=== PATIENT | female | born 1955 | race Caucasian/White ===

== ENCOUNTER 2018-07-24 14:58 | Emergency (ER) | payer MEDICARE ==
[~2018-07-24] VITALS: Ht 177.8 cm; Wt 83.9 kg
[~2018-07-24 14:58] MED LIST: ALBU3IS INH; ASPI325 PO; AZIT250 PO; CARV3.125; CARV3.125 PO; CYAN1000 PO; Coumadin5 MG PO; Dazidox10 MG PO; FLUSAL2505 INH; FURO20 PO; GABA300 PO; GABA600 PO; IBUP600 PO; Lovenox100 MG/1 M SC; MULVITMIND PO; NEBI5 PO; OMEP40CA12 PO; OXYB5 PO; OXYC1TAB11 PO; OXYC30ER PO; POTCHL20ER PO; PRED10 PO; RANI150 PO; TIOT18 INH; TUDORZA PRESS400 MCG IH; Ventolin5 MG/1 ML INH
[2018-07-24] MEDS ORDERED: Percocet 5-3251 EACH PO (16:41)
[2018-07-24] MEDS ORDERED: Keflex500 MG PO (16:41)
[2018-07-24] MEDS ORDERED: Bactrim Ds Tab1 EACH PO (16:41)
== END 2018-07-24 17:12 | disposition home or self-care (01) ==
LOC: ER 14:58
DX: L03.115 Cellulitis of right lower limb (principal); Z88.5 Allergy status to narcotic agent; Z88.6 Allergy status to analgesic agent; Z79.899 Other long term (current) drug therapy; J44.9 Chronic obstructive pulmonary disease, unspecified; Z87.891 Personal history of nicotine dependence
CPT/HCPCS: 93971; 99284-25

== ENCOUNTER 2023-03-20 10:25 | Emergency (ER) | payer MEDICARE ==
[~2023-03-20] VITALS: Ht 177.8 cm; Wt 74.8 kg
[~2023-03-20 10:25] MED LIST changes: +Bactrim Ds Tab1 EACH PO; +Keflex500 MG PO; +Percocet 5-3251 EACH PO
[2023-03-20 11:02] LABS: BASOPHILS ABSOLUTE AUTO 0.02 K/mm3 (0.00-0.23); BASOPHILS PERCENT AUTO 0 % (0-2); EOSINOPHILS ABSOLUTE AUTO 0.12 K/mm3 (0.00-0.68); EOSINOPHILS PERCENT AUTO 2 % (0-6); Hematocrit 21.1 % (33.0-51.0); IMMATURE GRAN ABSOLUTE AUTO 0.03 K/mm3 (0.00-0.10); IMMATURE GRAN PERCENT AUTO 0 % (0-1); LYMPHOCYTES ABSOLUTE AUTO 1.01 K/mm3 (0.84-5.20); LYMPHOCYTES PERCENT AUTO 15 % (21-46); MONOCYTES PERCENT AUTO 6 % (4-13); Mean Corpuscular HGB 23.1 pg (26.0-34.0); Mean Corpuscular HGB Conc 27.5 g/dL (31.5-36.5); Mean Corpuscular Volume 84 fL (80-100); Mean Platelet Volume 9.5 fL (9.1-12.4); NEUTROPHILS ABSOLUTE AUTO 5.12 K/mm3 (1.96-9.15); NEUTROPHILS PERCENT AUTO 76 % (41-73); Platelet Count 152 K/mm3 (150-400); RDW Coefficient Variation 20.8 % (11.7-14.2); RDW Standard Deviation 62.5 fL (35.1-46.3); Red Blood Cell Count 2.51 M/mm3 (3.80-5.20)
[2023-03-20 11:12] LABS: Hemoglobin 5.8 g/dL (11.5-16.0)
[2023-03-20 11:20] LABS: Albumin, Blood 2.8 g/dL (3.4-5.0); Albumin/Globulin Ratio 0.6 (0.8-1.8); Bilirubin, Total 0.4 mg/dL (0.1-1.0); Bun/Creatinine Ratio 12.1 (12.0-20.0); Calcium, Blood 8.5 mg/dL (8.5-10.1); Globulin, Blood 4.7 g/dL (2.2-4.0); Potassium, Blood 3.4 mmol/L (3.5-5.5); Total Protein, Blood 7.5 g/dL (6.4-8.2)
[2023-03-20 15:25] VITALS: BP 145/62
== END 2023-03-20 15:25 | disposition home or self-care (01) ==
LOC: ER 10:25
PROVIDERS: Physician Assistant
DX: D64.9 Anemia, unspecified (principal); J44.9 Chronic obstructive pulmonary disease, unspecified; M10.9 Gout, unspecified; Z86.711 Personal history of pulmonary embolism; Z87.891 Personal history of nicotine dependence; Z87.01 Personal history of pneumonia (recurrent)
CPT/HCPCS: 36430; 80053; 85025; 86850; 86900; 86901; 86923; 93005; 93010; 99283-25; J7030; P9016